=== PATIENT | male | born 2000 | race Caucasian/White ===

== ENCOUNTER 2018-09-15 02:57 | Emergency (ER) | payer OTHER ==
--- NOTE | 2018-09-15 03:00 | EDPHY ---
H & P Source: Patient Time Seen by Provider: 09/15/18 02:59 HPI/ROS: HPI CHIEF COMPLAINT: Aggressive behavior M1 hold by police. HISTORY OF PRESENT ILLNESS: 18-year-old male, history of schizophrenia, Myocarditis (on Metoprolol) with a recent hospitalization at [facility] and was discharged on Friday(4 days a go). He takes Latuda and Seroquel. Presents emergency room on M1 hold by police for aggressive behavior. His father is accompanied by police and him his father is a physician at [employer]. Internal Medicine. Patient arrives to the emergency room staring, does not answer any of my questions, and appears to be reacting to internal stimuli. The father reports that he became aggressive tonight and angry at his mental health provider who is staying in his apartment with him. Became very aggressive physically threatening in the police were called. The patient appears somewhat paranoid and reacting to internal stimuli. Past Medical History: Schizophrenia, Myocarditis Past Surgical History: No recent surgical history Social History: Lives locally. Father at bedside. Dad is an IM Physician [employer] ([place]) Family History: Noncontributory ROS REVIEW OF SYSTEMS: Limited to in mental illness. Exam Constitutional triage nursing summary reviewed, vital signs reviewed, awake/ alert. Eyes normal conjunctivae and sclera, EOMI, PERRLA. HENT normal inspection, atraumatic, moist mucus membranes, no epistaxis, neck supple/ no meningismus, no raccoon eyes. Respiratory clear to auscultation bilaterally, normal breath sounds, no respiratory distress, no wheezing. Cardiovascular rate normal, regular rhythm, no murmur, no edema, distal pulses normal. Gastrointestinal soft, non-tender, no rebound, no guarding, normal bowel sounds, no distension, no pulsatile mass. Genitourinary no CVA tenderness. Musculoskeletal no midline vertebral tenderness, full range of motion, no calf swelling, no tenderness of extremities, no meningismus, good pulses, neurovascularly intact. Skin pink, warm, & dry, no rash, skin atraumatic. Neurologic awake, alert and oriented x 3, AAOx3, moves all 4 extremities equally, motor intact, sensory intact, CN II-XII intact, normal cerebellar, normal vision, normal speech. Psychiatric acutely psychotic, reacting to internal stimuli. Heme/Lymph/Immune no lymphadenopathy. Differential Diagnosis: Includes but is not limited to in a particular order acute psychosis, alfonso, aggressive behavior Medical Decision Making: Plan for this patient 10 mg IM Zyprexa and Benadryl as he is somewhat agitated towards medical staff here in did try to run from his room. He is on M1 home. He will need blood draw for medical clearance. He will need mental health evaluation and most likely placement. Recently discharged from [facility] and his father would prefer that he goes back there. Re-evaluation: Patient here with Acute Pyschosis. 0700: Signed over to Dr. Angeles. Pend Eval. On m1 hold. (Rajinder Green) Constitutional: Initial Vital Signs Temperature (C) 36.7 C 09/15/18 03:00 Heart Rate 78 09/15/18 03:00 Respiratory Rate 16 09/15/18 03:00 Blood Pressure 124/74 H 09/15/18 03:00 O2 Sat (%) 97 09/15/18 03:00 O2 Delivery Mode Room Air Allergies/Adverse Reactions: clozapine [From Clozaril] Allergy (Verified 09/15/18 04:01) loxapine Allergy (Verified 09/15/18 04:01) Home Medications: Medication Instructions Recorded Latuda 09/15/18 Metoprolol Succinate Xr 09/15/18 Seroquel 09/15/18 Medical Decision Making ED Course/Re-evaluation: This patient was turned over to me at change of shift. This patient has been accepted at [facility]. The appropriate transfer paperwork has been filled out. We have ordered the patient is scheduled morning medicine. His father a physician is at the bedside. We are just waiting for the transfer to take place. [facility] has approved his stay at [facility] (Gibran Angeles) - Data Points Laboratory Results: Laboratory Results 09/15/18 03:20 09/15/18 03:20 09/15/18 09/15/18 09/15/18 03:34 03:20 03:20 WBC 13.30 10^3/uL H 10^3/uL (3.80-9.50) RBC 5.77 10^6/uL 10^6/uL (4.40-6.38) Hgb 16.4 g/dL g/dL (13.7-17.5) Hct 47.2 % % (40.0-51.0) MCV 81.8 fL fL (81.5-99.8) MCH 28.4 pg pg (27.9-34.1) MCHC 34.7 g/dL g/dL (32.4-36.7) RDW 13.3 % % (11.5-15.2) Plt Count 332 10^3/uL 10^3/uL (150-400) MPV 10.7 fL fL (8.7-11.7) Neut % (Auto) 62.6 % % (39.3-74.2) Lymph % (Auto) 24.1 % % (15.0-45.0) Lucas % (Auto) 7.1 % % (4.5-13.0) Eos % (Auto) 5.3 % % (0.6-7.6) Baso % (Auto) 0.5 % % (0.3-1.7) Nucleat RBC Rel Count 0.0 % % (0.0-0.2) Absolute Neuts (auto) 8.33 10^3/uL H 10^3/uL (1.70-6.50) Absolute Lymphs (auto) 3.20 10^3/uL H 10^3/uL (1.00-3.00) Absolute Monos (auto) 0.95 10^3/uL H 10^3/uL (0.30-0.80) Absolute Eos (auto) 0.70 10^3/uL H 10^3/uL (0.03-0.40) Absolute Basos (auto) 0.07 10^3/uL 10^3/uL (0.02-0.10) Absolute Nucleated RBC 0.00 10^3/uL 10^3/uL (0-0.01) Immature Gran % 0.4 % % (0.0-1.1) Immature Gran # 0.05 10^3/uL 10^3/uL (0.00-0.10) Sodium 140 mEq/L mEq/L (135-145) Potassium 4.2 mEq/L mEq/L (3.5-5.2) Chloride 107 mEq/L mEq/L (97-110) Carbon Dioxide 21 mEq/l L mEq/l (22-31) Anion Gap 12 mEq/L mEq/L (6-14) BUN 17 mg/dL mg/dL (7-23) Creatinine 0.8 mg/dL mg/dL (0.7-1.3) Estimated GFR > 60 Glucose 99 mg/dL mg/dL (70-100) Calcium 9.6 mg/dL mg/dL (8.5-10.4) Urine Opiates Screen NEGATIVE (NEGATIVE) Urine Barbiturates NEGATIVE (NEGATIVE) Ur Phencyclidine Scrn NEGATIVE (NEGATIVE) Ur Amphetamine Screen NEGATIVE (NEGATIVE) U Benzodiazepines Scrn NEGATIVE (NEGATIVE) Urine Cocaine Screen NEGATIVE (NEGATIVE) U Marijuana (THC) Screen NEGATIVE (NEGATIVE) Ethyl Alcohol < 10 mg/dL mg/dL (0-10) Medications Given: Discontinued Medications Diphenhydramine HCl (Benadryl Injection) 25 mg IVP EDNOW ONE Stop: 09/15/18 03:45 Last Admin: 09/15/18 03:35 Dose: 25 mg Olanzapine (Zyprexa Injection) 10 mg IM EDNOW ONE Stop: 09/15/18 03:45 Last Admin: 09/15/18 03:35 Dose: 10 mg Departure - Departure Disposition: Other Psych, Not [place] Clinical Impression: Acute psychosis Condition: Fair Referrals: CHAVA BARR [Other] - As per Instructions
[2018-09-15] MEDS ORDERED: OLANZapine 10 MG/2 ML VIAL ONE (03:29)
[2018-09-15 03:34] LABS: PLATELET COUNT 332 10^3/uL (150-400)
[2018-09-15] MEDS ORDERED: OLANZapine 10 MG/2 ML VIAL IM ONE (03:44)
--- NOTE | 2018-09-15 10:05 | ASMTTLCEVL ---
TLC Evaluation - Basic Information Evaluation Start Date and 09/15/2018 06:30 AM Time Hospital Status Answers: M1 Hold 72-hr M1 Hold Start Date 09/15/2018 02:06 AM and Time Patient statement Notes: "Hey, no don't know why I'm here. " Narrative Notes: Per ED Report "18-year-old male, history of schizophrenia, with a recent hospitalization at [facility] and was discharged on Friday. He takes Latuda and Seroquel. Presents emergency room on M1 hold by police for aggressive behavior.His father is accompanied by police and him his father is a physician at [place]. Internal Medicine.Patient arrives to the emergency room staring, does not answer any of my questions, and appears to be reacting to internal stimuli.The father reports that he became aggressive tonight and angry at his mental health provider who is staying in his apartment with him. Became very aggressive physically threatening in the police were called.The patient appears somewhat paranoid and reacting to internal stimuli. Pt was given 10 mg IM Zyprexa and Benadryl as he was somewhat agitated towards medical staff here in did try to run from his room. He is on M1 hold" Per M1 Hold " Ofc's responded to the above location after patients psychotherapist (RP) called police due to aggressive behavior by patient. Patient/Respondent threw a magazine at the therapist. During Interview with officers, respondent would not answer questions and was evasive about this distrubance. Respondant has a diagnosis of schizophrenia per RP. REpsondent appeard to be dispondent, continually twirled his hair and intermittently laughted softly." Diagnosis History Notes: Schizophrenia Prior suicide attempts Notes: None reported Prior hospitalizations Notes: PT was hospitalized at [facility] in [place] () 2017 but father reports it was not a helpful experience. Pt was hospitalized at [facility] shortly after CP discharge and father reported it was a much better experience and would like PT to return to [facility]. Treatment Responses Notes: PT was discharged from [facility] a week ago. Pt's father reported it was helpful. Pt was previous at [facility] but it was not a good stay. History of violence Notes: None reported Therapist: Chris Linn MA ([facility]) Psychiatrist: Emiliano Pope MD; Amol Braun MD ([facility]) Medications (name, dosage, route, freq uency) Notes: Latuda 60MG Seroquel 50MG Q 2 Hrs PRN --- After first break 2 years ago Initially was on Respirdal 5-6 mg it wasnt very effective; Latuda 60mg has been most effect, Psychiatrists have been attempting to find the right dosagges ---- Bad reactions to loxapine (developed EPS) and clozapine (rare myocarditus symptom) Allergies/Reaction Notes: After first break 2 years ago Initially was on Respirdal 5-6 mg it wasnt very effective; Latuda 60mg has been most effect, Psychiatrists have been attempting to find the right dosagges ---- Bad reactions to loxapine (developed EPS) and clozapine (rare myocarditus symptom) Sleep Notes: Good about 8 hrs Appetite Notes: With In Normal Limits Medical/Surgical history Notes: None reported Substance use history (frequency, intensity, his tory, duration) Notes: Pt denied any substance use and his utox was also negative. Family composition Notes: Pt has a 16 YO younger brother PT's parents are together and live in [facility]. Pt's father flew into town earlier this week. Need for family Answers: Yes participation in patient's care Family psychiatric/substance abuse history Notes: Great Aunt has psychotic depression, great grand father had PTSD due to a bombing during the war. No family hx of substance abuse Developmental history Notes: No ADD, ADHD, no TBI's, no concussions, no reported emotional, physical or sexual abuse growing up. Abuse concerns Answers: None Marital status/children Notes: Unmarried with no children Living situation Notes: Lives in an apartment in [place] Sexual history/orientation Notes: Heterosexual, Not Active Peer support/family strengths Notes: PT has a supportive team with [employer], pt's family is very involved in pt's care. Education level/history Notes: Pt was studying [employer] at [employer] during his first psychotic break 2 years ago Work history Notes: None reported Notes: None reported Legal Notes: None reported Holiness/Spiritual Notes: No religous or spiritual practices that would interfere with treatment. Per pt's father he is into [employer] and "Emiliano Kaba's work" Leisure Notes: Philosphy, Debate, Ultimate Frisbee, Andrews ball, Collateral Notes: Collateral data obtained from M1 Hold, ED report, and Pt's father [phone] who is very involved his care. Patient's strengths Answers: Athletic (Please select at least TWO strengths): Intelligent Motivated for Treatment Supportive Family Willingness [facility] Evaluation - Mental Status Exam Appearance: Answers: Appropriate Clean Eye Contact: Answers: Intermittent Mood: Answers: Depressed Irritable Affect: Answers: Appropriate Agitated Flat Guarded Irritable Behavior: Answers: Appropriate Cooperative Erratic Guarded Impulsive Withdrawn Speech: Answers: Relevant Logical Clear Coherent Selectively Mute Thought Process: Answers: Disorganized Oriented Alert Distracted Paranoid Insight: Answers: Poor Judgement: Answers: Poor Manic Signs/Symptoms Answers: Distractibility Impulsivity Irritability Mood Swings Depression Answers: Flat Affect Signs/Symptoms: Hopelessness Psychomotor Agitation Hallucinations: Answers: Auditory Command Delusions: Answers: Paranoid Ideation Current Stage of Change Answers: Maintenance Pt reported to have Answers: No suicidal/self-injuring ideation/behavior? Pt reported to be making Answers: No suicidal/self-injuring threats? Pt reported to have Answers: Yes aggression/assault ideation/behavior? Pt reported to be making Answers: No aggression/assault threats? Pt exhibits inability to Answers: Yes care for self/grave disability? Ideation/behavior is Answers: No chronic? Patient has a specific Answers: No plan? Pt has access to means to Answers: No execute the plan? Ideation involves Answers: No serious/lethal intent? Ideation has Answers: Yes delusional/hallucinatory content? History of Answers: No suicidal/self-injuring ideation, behavior, or threats? History of Answers: No aggressive/assaultive ideation, behavior, or threats? History of serious Answers: No physical harm to self/others while in treatment setting? [facility] Evaluation - Suicide/Homicide Risk Suicide Risk Factors: Answers: Agitation Command Hallucinations Flat Affect Impulsivity Psychotic Disorder Rapid Mood Shifts Schizophrenia Single Homicide/violence risk Answers: Paranoid Ideation factors: Current Suicidal Answers: No Ideation? Current Suicidal Ideation Answers: No in the Past 48 Hours? Current Suicidal Ideation Answers: No in the Past Month? Current Suicidal Answers: No Ideation, Worst Ever? Suicide Internal Answers: Frustration Tolerance Protective Factors: Suicide External Answers: Positive Therapeutic Protective Factors: Relationships Social Support Ranking of patient's Answers: Low suicidal risk: Ranking of patient's Answers: Moderate homicidal risk: TLC Evaluation - Wrap-up AXIS I Diagnosis (include DSM-V and ICD-10 codes), must also be entered in [employer], which is the source of truth. Notes: Schizophrenia 295.90 (F20.9) PT refused to complete BDI or BSS Evaluation End Date and 09/15/2018 10:00 AM Time (HH:WANDA): Date Signed: 09/15/2018 10:04 AM Electronically Signed By:Aniket Alvarado
--- NOTE | 2018-09-15 10:49 | ASMTTCLDSP ---
TLC Discharge Disposition Disposition: Answers: Transfer Disposition Notes: Notes: In consultation with [facility] ED physician, Gibran Angeles MD and [facility] Luis Scott MD on-call psychiatrist, , both concurred that pt appears to meet 27-65 criteria requiring psychiatric hospitalization as pt appears to be gravely disabled due to a mental illness condition. Discharge Concerns/Recommendations: Notes: Dr. Luis Scott MD authorized [facility] for continuity of care. Hold initiated by: Answers: Police For Transfers, Accepting [facility] Facility: For Transfers, Accepting [facility] Psychiatrist: For Transfers, Reason [facility] & Continuity of care Patient is Being Transferred: Date Signed: 09/15/2018 10:49 AM Electronically Signed By:Aniket Alvarado
[2018-09-15 11:38] VITALS: BP 118/86
== END 2018-09-15 12:12 ==
DX: F20.89 Other schizophrenia (principal); I51.4 Myocarditis, unspecified; Z79.899 Other long term (current) drug therapy
CPT/HCPCS: 80305; 96374; G0480; J1200

== ENCOUNTER 2018-11-08 16:14 | Emergency (ER) | payer OTHER ==
--- NOTE | 2018-11-08 16:30 | EDPHY ---
HPI/HX/ROS/PE/MDM Narrative: CHIEF COMPLAINT: M1 hold HPI: The patient is a 18-year-old male with a history of psychosis. He currently lives in [facility] and was brought to the emergency department by ambulance on an M1 hold was placed by the staff psychiatrist there secondary to for responding to internal stimuli and yelling in his room. It is unclear whether he is taking his Depakote or not. The patient denies any specific complaints. REVIEW OF SYSTEMS: Aside from elements discussed in the HPI, a comprehensive 10-point review of systems was reviewed and is negative. This is limited secondary altered mental status. PMH: Includes history of psychosis, a recent 2 month stay at [facility] ([place], [place]). SOCIAL HISTORY: Lives at [facility]. Denies drug abuse. PHYSICAL EXAM: General:Patient is alert, in no acute distress. ENT:Eyes are normal to inspection. ENT inspection normal. Neck: Normal inspection. Full range of motion. Respiratory:No respiratory distress. Breath sounds normal bilaterally. Cardiovascular: Regular rate and rhythm. Strong peripheral pulses. Normal cap refill. Abdomen:The abdomen is nontender to palpation. There are no peritoneal signs. There are normal bowel sounds. Back: Normal to inspection. No tenderness to palpation. Skin: Normal color. No rash. Warm and dry. Extremities: Normal appearance. Full range of motion. Neuro: No focal deficits. Psych: Response to internal stimuli. Odd affect. ED Course: 2144: Patient accepted for transfer to [facility]. EMTALA form filled out. - Data Points Laboratory Results: Laboratory Results 11/08/18 16:30 11/08/18 16:30 11/08/18 11/08/18 11/08/18 17:30 16:30 16:30 WBC RBC Hgb Hct MCV MCH MCHC RDW Plt Count MPV Neut % (Auto) Lymph % (Auto) Martin % (Auto) Eos % (Auto) Baso % (Auto) Nucleat RBC Rel Count Absolute Neuts (auto) Absolute Lymphs (auto) Absolute Monos (auto) Absolute Eos (auto) Absolute Basos (auto) Absolute Nucleated RBC Immature Gran % Immature Gran # Sodium 140 mEq/L mEq/L (135-145) Potassium 4.1 mEq/L mEq/L (3.5-5.2) Chloride 109 mEq/L mEq/L (97-110) Carbon Dioxide 20 mEq/l L mEq/l (22-31) Anion Gap 11 mEq/L mEq/L (6-14) BUN 22 mg/dL mg/dL (7-23) Creatinine 0.7 mg/dL mg/dL (0.7-1.3) Estimated GFR > 60 Glucose 111 mg/dL H mg/dL (70-100) Calcium 9.7 mg/dL mg/dL (8.5-10.4) Urine Opiates Screen NEGATIVE (NEGATIVE) Urine Barbiturates NEGATIVE (NEGATIVE) Valproic Acid Pending Ur Phencyclidine Scrn NEGATIVE (NEGATIVE) Ur Amphetamine Screen NEGATIVE (NEGATIVE) U Benzodiazepines Scrn NEGATIVE (NEGATIVE) Urine Cocaine Screen NEGATIVE (NEGATIVE) U Marijuana (THC) Screen NEGATIVE (NEGATIVE) Ethyl Alcohol Pending 11/08/18 16:30 WBC 7.25 10^3/uL 10^3/uL (3.80-9.50) RBC 5.63 10^6/uL 10^6/uL (4.40-6.38) Hgb 16.3 g/dL g/dL (13.7-17.5) Hct 48.2 % % (40.0-51.0) MCV 85.6 fL fL (81.5-99.8) MCH 29.0 pg pg (27.9-34.1) MCHC 33.8 g/dL g/dL (32.4-36.7) RDW 14.1 % % (11.5-15.2) Plt Count 208 10^3/uL 10^3/uL (150-400) MPV 9.7 fL fL (8.7-11.7) Neut % (Auto) 65.3 % % (39.3-74.2) Lymph % (Auto) 25.4 % % (15.0-45.0) Martin % (Auto) 7.3 % % (4.5-13.0) Eos % (Auto) 1.2 % % (0.6-7.6) Baso % (Auto) 0.4 % % (0.3-1.7) Nucleat RBC Rel Count 0.0 % % (0.0-0.2) Absolute Neuts (auto) 4.73 10^3/uL 10^3/uL (1.70-6.50) Absolute Lymphs (auto) 1.84 10^3/uL 10^3/uL (1.00-3.00) Absolute Monos (auto) 0.53 10^3/uL 10^3/uL (0.30-0.80) Absolute Eos (auto) 0.09 10^3/uL 10^3/uL (0.03-0.40) Absolute Basos (auto) 0.03 10^3/uL 10^3/uL (0.02-0.10) Absolute Nucleated RBC 0.00 10^3/uL 10^3/uL (0-0.01) Immature Gran % 0.4 % % (0.0-1.1) Immature Gran # 0.03 10^3/uL 10^3/uL (0.00-0.10) Sodium Potassium Chloride Carbon Dioxide Anion Gap BUN Creatinine Estimated GFR Glucose Calcium Urine Opiates Screen Urine Barbiturates Valproic Acid Ur Phencyclidine Scrn Ur Amphetamine Screen U Benzodiazepines Scrn Urine Cocaine Screen U Marijuana (THC) Screen Ethyl Alcohol Medications Given: Discontinued Medications Olanzapine (Zyprexa Zydis) 10 mg PO EDNOW ONE Stop: 11/08/18 16:35 Last Admin: 11/08/18 16:45 Dose: 10 mg General Time Seen by Provider: 11/08/18 16:16 Initial Vital Signs: Initial Vital Signs Temperature (C) 36.6 C 11/08/18 16:32 Heart Rate 108 H 11/08/18 16:32 Respiratory Rate 16 11/08/18 16:32 Blood Pressure 126/88 H 11/08/18 16:32 O2 Sat (%) 98 11/08/18 16:32 O2 Delivery Mode Room Air Allergies/Adverse Reactions: clozapine [From Clozaril] Allergy (Verified 11/08/18 16:33) loxapine Allergy (Verified 11/08/18 16:33) Home Medications: Medication Instructions Recorded Latuda 09/15/18 Metoprolol Succinate Xr 09/15/18 Seroquel 09/15/18 Departure - Departure Disposition: Other Psych, Not [facility] Referrals: Patient,NotPresent [Unknown] - As per Instructions
[2018-11-08] MEDS ORDERED: OLANZapine DISINTEGR 10 MG TAB PO ONE (16:34)
[2018-11-08 16:49] LABS: PLATELET COUNT 208 10^3/uL (150-400)
--- NOTE | 2018-11-08 18:13 | ASMTLCPROG ---
Notes Note: Notes: Met with this 18 y/o, male patient to read and review Patient Rights. Pt listened attentively, and reported that he had no questions and signed the form stating that he understood the document. In addition, I spoke with pt's father, Dr Wojciech Smith to review the circumstances of his admission to the ED - father is aware and had spoken with the MD at [facility]. Father is requesting hospitalization at [facility] based on prior experience and I will let the [place] Psychiatrist know the family preference. Date Signed: 11/08/2018 06:13 PM Electronically Signed By:Natasha Burr
--- NOTE | 2018-11-08 18:58 | ASMTTLCEVL ---
TLC Evaluation - Basic Information Evaluation Start Date and 11/08/2018 06:05 PM Time Hospital Status Answers: M1 Hold 72-hr M1 Hold Start Date 11/08/2018 03:35 PM and Time Patient statement Notes: "I don't know - I was walking around." Narrative Notes: According to the M-1 report and discussion with the Psychiatrist at [facility], this 18 y/o, single, male diagnosed with a psychotic illness has become increasingly emotionally labile and agitated with paranoia, according to his residence staff. He appears to be responding to internal stimuli - yelling at voices, mumbling, smiling to self - staring at others, particularly females and staff members.These behaviors have increased over the past several days. He initially asked to be hospitalized and then refused - wandering away from [facility] without a coat or proper footwear. He was then brought to the ED by ambulance. Pt has a several year history of psychotic disorder and was most recently hospitalized in August. During the interview, he is relatively disengaged, not really responding to questions and appeared internally preoccupied and seemed to be touching his genitals under the covers.. Diagnosis History Notes: Pt has been diagnosed with schizoaffective disorder. Prior suicide attempts Notes: None reported Prior hospitalizations Notes: Several - twice at [facility] - 09/08; Prior at [facility] Treatment Responses Notes: Pt was reported to have stabilized on medication and experiencing a decrease in psychotic symptoms following discharge from [facility]. He was then sent to [facility] where he initially did okay, but behavior has recently deteriorated and his symptoms have returned. Pt told his MD today that he has been cheeking his depakote and latuda. History of violence Notes: None reported Therapist: Shilpa Hdz Psychiatrist: Deangelo Yee MD Medications (name, dosage, route, freq uency) Notes: Invega Sustenna 234mg IM every 4 weeks - due 11/11/18 Propranolol 20 mg twice daily Depakote ER 1500 mg at bedtime Melatonin 3 mg at bedtime Vitamin D3 4000 units daily; Metformin 500 mg at bedtime Latuda 100 mg at 18:00 with 300 calories of food Allergies/Reaction Notes: Clozapine -NMS Loxipine Sleep Notes: 8 hours Appetite Notes: Within normal limits Medical/Surgical history Notes: S/P Myocarditis - may have been a complicationof medication Substance use history (frequency, intensity, his tory, duration) Notes: Pt denies - u-tox negativ for all drugs Family composition Notes: Parents and youngr brother live in [facility] Need for family Answers: Yes participation in patient's care Family psychiatric/substance abuse history Notes: Great Aunt with history of psychotic depression. No substance abuse infamily Developmental history Notes: No ADD, TBI's or concussion, No reports of abuse Abuse concerns Answers: None Marital status/children Notes: Single - no children Living situation Notes: Living at [facility] in association with [facility] Sexual history/orientation Notes: Heterosexual - not active Peer support/family strengths Notes: Parents are very supportive; Supportive team at [facility] and [facility] Education level/history Notes: Some college Work history Notes: NA Notes: NA Legal Notes: NA Spiritism/Spiritual Notes: No yazidism or spiritual practices that would interfere with treatment. Leisure Notes: Pt responded - "I don't know". Collateral Notes: Spoke with Dr. Yee, pt's psychiatrist and , pt's father; written records from [facility]. Patient's strengths Answers: Motivated for Treatment (Please select at least TWO strengths): Supportive Family Willingness TLC Evaluation - Mental Status Exam Appearance: Answers: Unkempt Disheveled Eye Contact: Answers: Intermittent Mood: Answers: Depressed Affect: Answers: Blunted Congruent w/ Mood Flat Inappropriate Behavior: Answers: Cooperative Guarded Speech: Answers: Clear Coherent Delayed Thought Process: Answers: Organized Distracted Judgement: Answers: Poor Hallucinations: Answers: Auditory Pt reported to have Answers: No suicidal/self-injuring ideation/behavior? Pt reported to be making Answers: No suicidal/self-injuring threats? Pt reported to have Answers: No aggression/assault ideation/behavior? Pt reported to be making Answers: No aggression/assault threats? Pt exhibits inability to Answers: Yes care for self/grave disability? History of Answers: No suicidal/self-injuring ideation, behavior, or threats? History of Answers: No aggressive/assaultive ideation, behavior, or threats? History of serious Answers: No physical harm to self/others while in treatment setting? TLC Evaluation - Suicide/Homicide Risk Suicide Risk Factors: Answers: Psychotic Disorder Homicide/violence risk Answers: None factors: Current Suicidal Answers: No Ideation? Current Suicidal Ideation Answers: No in the Past 48 Hours? Current Suicidal Ideation Answers: No in the Past Month? Suicide External Answers: Positive Therapeutic Protective Factors: Relationships Ranking of patient's Answers: Low suicidal risk: Ranking of patient's Answers: Low homicidal risk: TLC Evaluation - Wrap-up AXIS I Diagnosis (include DSM-V and ICD-10 codes), must also be entered in [employer], which is the source of truth. Notes: 295.90 (F20.9) Schizophrenia Allergic to Cclozapine and Loxapine Evaluation End Date and 11/08/2018 07:00 PM Time (HH:WANDA): Date Signed: 11/08/2018 06:58 PM Electronically Signed By:Natasha Burr
--- NOTE | 2018-11-08 19:25 | ASMTLCPROG ---
Notes Note: Notes: Consulted with Dr. Schwarz, on-call [facility] psychiatrist who approves this pt for transfer to [facility] ([place], [place]) (family's preference)[facility] or [facility]. Referrals sent. Date Signed: 11/08/2018 07:24 PM Electronically Signed By:Natasha Burr
--- NOTE | 2018-11-08 21:49 | ASMTTCLDSP ---
TLC Discharge Disposition Disposition: Answers: Transfer Disposition Notes: Notes: In consultation with ED MD, Dr. Page and on-call [facility] psychiatrist, Dr. Yates, both concurred tht pt appears to meet the 27-65 criteria requiring in-pt psychiatric treatment as pt appears to be gravely disabled due to a mental illness condition. Discharge Concerns/Recommendations: Notes: Pt will be transferred to [facility] as this hospital ls in network with [facility] and is the requested hospital per parents Was patient given the Answers: Not applicable Inpatient Behavioral Health Prohibited Belongings List while in the ED? Type of Hold: Answers: M1/72-hour Hold Hold initiated by: Answers: Other Notes: at [facility] Date Signed: 11/08/2018 09:48 PM Electronically Signed By:Natasha Burr
--- NOTE | 2018-11-08 21:52 | ASMTLCPROG ---
Notes Note: Notes: Pt has been accepted to [facility] and will be transferred via [facility]. Eval and Dispo faxed to [facility] per Dr. Yates's request. Family notified of upcoming transfer. Date Signed: 11/08/2018 09:51 PM Electronically Signed By:Natasha Burr
[2018-11-08 22:32] VITALS: BP 133/77
== END 2018-11-08 23:10 ==
LOC: EDUNIT#
DX: F29 Unspecified psychosis not due to a substance or known physiological condition (principal)
CPT/HCPCS: 80305; G0480

== ENCOUNTER 2018-11-21 14:27 | Emergency (ER) | payer OTHER | END 2018-11-21 15:14 | disposition home or self-care (01) ==